=== PATIENT | male | born 1950 | race Caucasian/White ===

== ENCOUNTER 2020-07-11 19:28 | Outpatient (REF) | payer MEDICARE, MEDICAID, SELFPAY ==
[2020-07-11 16:58] LABS: ALT 22 U/L (16-63); AST 25 U/L (15-37); Albumin 3.9 g/dL (3.4-5.0); Alkaline Phosphatase 61 U/L (46-116); Anion Gap 11.4 mmol/L (3-11); BUN 17 mg/dL (7-18); Bilirubin, Total 0.5 mg/dL (0.2-1.0); CO2 26.6 mmol/L (21.0-32.0); CREATININE 1.1 mg/dL (0.70-1.30); Calcium 9.2 mg/dL (8.5-10.1); Calculated LDL 122 mg/dL (<100); Chloride 106 mmol/L (98-107); Cholesterol 216 mg/dL (<200); Glucose 88 mg/dL (74-106); HDL Cholesterol 82 mg/dL (40-60); Potassium 4.6 mmol/L (3.5-5.1); Sodium 144 mmol/L (136-145); TSH (W/Ref FT4) 0.95 uIU/mL (0.36-3.74); Total Protein 7.8 g/dL (6.4-8.2); Triglyceride 63 mg/dL (<150)
[2020-07-11 17:09] LABS: Uric Acid 7.6 mg/dL (3.5-7.2)
== END 2020-07-11 19:29 | disposition home or self-care (01) ==
LOC: NCHCN 19:28
PROVIDERS: PCP Physician Assistant; Visit Provider Physician Assistant
DX: I10 Essential (primary) hypertension (principal); M10.9 Gout, unspecified; F41.8 Other specified anxiety disorders
CPT/HCPCS: 80053; 80061; 84443; 84550

== ENCOUNTER 2022-06-04 12:09 | Outpatient (REF) | payer MEDICARE, MEDICAID, SELFPAY ==
[2022-06-04 19:25] LABS: Anion Gap 9.9 mmol/L (3-11); BUN 21 mg/dL (7-18); CO2 23.1 mmol/L (21.0-32.0); CREATININE 1.1 mg/dL (0.70-1.30); Calcium 9.5 mg/dL (8.5-10.1); Chloride 104 mmol/L (98-107); Estimated GFR 72.22 (mL/min/1.73m2); Glucose 108 mg/dL (74-106); Potassium 4.3 mmol/L (3.5-5.1); Sodium 137 mmol/L (136-145)
== END 2022-06-04 12:10 | disposition home or self-care (01) ==
LOC: NCHCN 12:09
PROVIDERS: PCP Physician Assistant; Visit Provider Physician Assistant
DX: I10 Essential (primary) hypertension (principal)
CPT/HCPCS: 80048

== ENCOUNTER 2023-02-24 12:39 | Outpatient (REF) | payer MEDICARE, MEDICAID, SELFPAY ==
[2023-02-24 19:28] LABS: Abs Immature Grans 0.05 10^3/uL (0.0-0.06); Absolute Basophil Count 0.09 10^3/uL (0.0-0.2); Absolute Eosinophil Count 0.44 10^3/uL (0.0-0.7); Absolute Lymphocyte Count 1.94 10^3/uL (1.2-3.4); Absolute Monocyte Count 0.75 10^3/uL (0.1-0.8); Absolute Neutrophil Count 6.42 10^3/uL (1.2-6.7); Basophils % 0.9; Eosinophils % 4.5; HCT 38.1 % (40.0-50.0); HGB 13.1 g/dL (13.5-17.5); Immature Grans % 0.5; MCH 31.3 pg (27.0-33.0); MCHC 34.4 % (32.0-36.0); MCV 91 fL (80-95); MPV 10.2 fL (8.0-11.0); Monocytes % 7.7; Neutrophils % 66.4; Platelet Count 370 10^3/uL (130-400); RBC 4.18 10^6/uL (4.36-5.78); RDW 12.3 % (11.8-14.1); RDW-SD 41.1 fL; WBC 9.69 10^3/uL (4.4-10.8)
[2023-02-24 19:39] LABS: ALT 17 U/L (16-63); AST 20 U/L (15-37); Albumin 3.6 g/dL (3.4-5.0); Alkaline Phosphatase 62 U/L (46-116); Anion Gap 9.1 mmol/L (3-11); BUN 20 mg/dL (7-18); Bilirubin, Total 0.3 mg/dL (0.2-1.0); CO2 24.9 mmol/L (21.0-32.0); Calcium 9.2 mg/dL (8.5-10.1); Chloride 103 mmol/L (98-107); Estimated GFR 80.47 (mL/min/1.73m2); Glucose 115 mg/dL (74-106); Potassium 4.3 mmol/L (3.5-5.1); Sodium 137 mmol/L (136-145); Total Protein 7.8 g/dL (6.4-8.2)
[2023-02-25 19:33] LABS: PSA, Screening 1.9 ng/mL (<=6.5)
== END 2023-02-24 12:40 | disposition home or self-care (01) ==
LOC: NCHCN 12:39
PROVIDERS: PCP Physician Assistant; Visit Provider Physician Assistant
DX: R31.9 Hematuria, unspecified (principal); M10.9 Gout, unspecified; Z12.5 Encounter for screening for malignant neoplasm of prostate
CPT/HCPCS: 80053; 84153; 85025

== ENCOUNTER 2023-06-01 15:14 | Outpatient (REF) | payer MEDICARE, MEDICAID, SELFPAY ==
[2023-06-01 20:55] LABS: LDL CHOLESTEROL 97 mg/dL (<100)
[2023-06-01 21:02] LABS: Hemoglobin A1C 5.3 % (<5.7)
== END 2023-06-01 15:15 | disposition home or self-care (01) ==
LOC: NCHCN 15:14
PROVIDERS: PCP Physician Assistant; Visit Provider Physician Assistant
DX: E78.5 Hyperlipidemia, unspecified (principal); R73.9 Hyperglycemia, unspecified; E66.3 Overweight
CPT/HCPCS: 83721; 83036

== ENCOUNTER → 2023-06-15 01:22 | Outpatient (CLI) | payer MEDICARE, MEDICAID, SELFPAY ==
--- NOTE | 2023-06-15 | DI.US_ITS ---
Exam(s) US RENAL EXAM: US RENAL CLINICAL HISTORY: BLOOD IN URINE, R31.9, HEMATURIA. TECHNIQUE: Bruce scale, color and spectral Doppler were used. COMPARISON: No exams were available for comparison FINDINGS: Renal size in cm: Right: 9.5 left: 10.5 Echogenicity: Normal Hydronephrosis: No Cyst or mass: No Nephrolithiasis: No Bladder:Normal. No wall thickening or trabeculation visible. No visible stone or mass. Both uret eral jets were visualized. Prevoid vol:413 cc Postvoid vol:95 cc Nodular, enlarged prostate which impresses on the base of the bladder. Volume 90 cc. IMPRESSION: Enlarged prostate and impressing upon the like base of bladder. Elevated postvoid residual. DATA REPOSITORY:
== END ==
PROVIDERS: PCP Physician Assistant; Visit Provider Physician Assistant
DX: N42.9 Disorder of prostate, unspecified (principal); R31.9 Hematuria, unspecified
CPT/HCPCS: 76770

== ENCOUNTER 2023-12-01 11:21 | Outpatient (REF) | payer MEDICARE, MEDICAID, SELFPAY ==
--- OUTSIDE RECORDS SUMMARY | 2023-12-01 11:26 | XMS_ITS | Clinical Summary ---
Author Organization [facility] Address [address] [place] [id number] Care Team Providers Care Warehouse Order Selector Name Role Phone Unknown, Provider Primary Care Provider Social History Tobacco Use Types Packs/Day Years Used Date Smoking Tobacco: Never Assessed Sex and Gender Information Value Date Recorded Sex Assigned at Not on file Gender Identity Not on file Sexual Orientation Not on file Plan of Treatment Health Maintenance Due Date Last Done Comments Hepatitis C Screen 1950 RSV Immunization ( o r 60+ Years) (1 - 1-dose 60+ series) 2011 Fall Risk Screening 09/05/2016 COVID-19 Vaccine ( season) 2023 Care Teams Warehouse Order Selector Relationship Specialty Start Date End Date Unknown, Provider, PCP - General 08/29/15
--- OUTSIDE RECORDS SUMMARY | 2023-12-01 11:26 | XMS_ITS | Encounter Summary ---
Author Organization [facility] Address [address] [place] [address] Care Team Providers Care Manager Sourcing Name Role Phone None, Provider Primary Care Provider Unavailabl e Unknown, Provider Primary Care Provider [phone] Encounter Details Date Type Department Care Team (Late st Contact Info) Description 08/28/2015 Results Only [facility] [phone] Lauro Jackson MD [address] [place] [phone] Social History Tobacco Use Types Packs/Day Years Used Date Smoking Tobacco: Never Assessed Sex and Gender Information Value Date Recorded Sex Assigned at Not on file Gender Identity Not on file Sexual Orientation Not on file documented as of this encounter Plan of Treatment Not on file documented as of this encounter Procedures Procedure Name Priority Date/Time Associated Diagnosis Comments SURGICAL PATHOLOGY Routine 08/28/2015 9:39 EDT documented in this encounter Results * SURGICAL PATHOLOGY (08/28/2015 9:39 EDT) Pathology Report: SURGICAL PATHOLOGY REPORT Reports generated via electronic interface contain original data; however they are lacking the format of the original report. Caution should be taken when reading/interpret ing unformatted reports. Name: ? TOR ROCKWELL ? Accession #: ? [id number] ? : ? 1950 (Age: 64) ??M ? Collect Date: ? 08/28/2015 ? Location: ? [facility] ? Receive Date: ? 08/30/2015 ? Provider: LAURO JACKSON MD Copy to: FUENTES QUEEN MD ? Final Pathologic Diagnosis: APPENDIX, APPENDECTOMY: - ??Acute suppurative appendicitis with periappendicitis. Document reviewed and electronically signed by: RHONDA BAEZ MD Report ??Date: 09/03/2015 17:09 By the signature above, the attending physician certifies that he/she has personally conducted a gross and/or microscopic examination of the described specimens and rendered or confirmed the above diagnosis. Specimen(s) Received: Appendix Clinical History: Appendicitis Gross Description: ? Received in formalin labelled with proper patient identification (initials M, W) and appendix is a vermiform appendix (11.0 cm in length x 0.7 cm in diameter), with dusky mesoappendix. The proximal margin is stapled. ? The serosa is john-white, smooth. The cut surface is unremarkable. The average wall thickness is 0.2 cm with no discernible perforation site. The lumen ranges from pinpoint to 0.1 cm in diameter and contains no fecalith. The proximal margin is inked black. ? The section adjacent to the proximal stapled margin, two traveling representative cross sections and one-half of the longitudinally bisected distal tip are submitted in 1. Dr. Nolasco 09/01/2015 2:58 PM End of Report [facility] 08/28/2015 9:39 EDT 08/30/2015 9:39 EDT Lauro Jackson MD PATHOLOGY ORDERABLES [facility] [address] [place] [address] documented in this encounter Visit Diagnoses Not on filedocumented in this encounter Care Teams Manager Sourcing Relationship Specialty Start Date End Date None, Provider PCP - General 03/12/15 08/28/15 Unknown, Provider, PCP - General 08/29/15 documented as of this encounter
--- OUTSIDE RECORDS SUMMARY | 2023-12-01 11:26 | XMS_ITS | Encounter Summary ---
Author Organization [facility] Address [address] [place] [address] Care Team Providers Care Facility Service Manager Name Role Phone Unknown, Provider Primary Care Provider [phone] Encounter Details Date Type Department Care Team (Late st Contact Info) Description 02/24/2023 Lab Requisition [facility] Pathology & Laboratory Medicine - [address] [address] Outr Resulting Lab, Provider Social History Tobacco Use Types Packs/Day Years Used Date Smoking Tobacco: Never Assessed Sex and Gender Information Value Date Recorded Sex Assigned at Not on file Gender Identity Not on file Sexual Orientation Not on file documented as of this encounter Plan of Treatment Not on file documented as of this encounter Procedures Procedure Name Priority Date/Time Associated Diagnosis Comments PSA TOTAL, DIAGNOSTIC Routine 02/24/2023 12:25 EDT documented in this encounter Results * PSA TOTAL, DIAGNOSTIC (02/24/2023 12:25 EDT) PSA 1.9 <=6.5 ng/mL 02/25/2023 19:28 EDT [facility] Blood VENOUS BLOOD / Unknown 02/24/2023 12:25 EDT 02/25/2023 17:54 EDT Narrative [facility] - 02/25/2023 19:28 EDT NOTE: Serum PSA concentration should not be interpreted as absolute evidence for the presence or absence of malignant disease. Assayed on Siemens ADVIA Centaur XPT using chemiluminescent technology.??Values obtained by using different assay methods cannot be used interchangeably. Provider Outr Resulting Lab CHEMISTRY & BLOOD GAS ORDERABLES [facility] [address] [place] [address] documented in this encounter Visit Diagnoses Not on filedocumented in this encounter Care Teams Facility Service Manager Relationship Specialty Start Date End Date Unknown, Provider, PCP - General 08/29/15 documented as of this encounter
--- OUTSIDE RECORDS SUMMARY | 2023-12-01 11:26 | XMS_ITS | Data Portability ---
Author Organization [facility] Address [address] [place] [facility] [place] [address] Care Team Providers Care Beauty Specialist Name Role Phone BENJAMIN YANCEY Dentist Assessment No assessment recorded. Plan of Treatment Reminders Order Date Submit Date Provider Last Modified By Organization Details Last Modified Time Details Appointments Follow Up 2023 09:40A Kerri MIKE Not available Not available Not available Follow Up 2024 02:30P Kerri MIKE Not available Not available Not available Lab HbA1c (hemoglob in A1c), blood - Specimen collected in the office at [facility]. [email or web address] [facility] (Registration ), [address] [place] [address] [place], [address], 06/08/2023 07:16:43 LDL, direct, serum - Specimen collected in the office at [facility]. [email or web address] [facility] (Registration ), [address] [place] [address] [place], [address], 06/08/2023 07:16:43 urinalysi s, dipstick 2023 024 [email or web address] [facility], [address] [place] [address] [address] [place], [address], 06/01/2023 09:50:30 Referral urologist referral - Referral to urology for episode of gross hematuria for a few days in Jan 2023. He is a cigar smoker daily. US of kidneys and bladder has been ordered at [facility]. He has not had another episode. 2023 024 [email or web address] Abraham Tineo MD, [address] [place] [address] [place], [address], 06/29/2023 08:33:01 Procedures None recorded. Surgeries None recorded. Imaging US, kidney 2023 024 SYLVIA [facility] (Radiology), [address] [place] [address] [place], [address], 06/15/2023 15:49:58 US, bladder 2023 024 [email or web address] [facility] (Radiology), [address] [place] [address] [place], [address], 06/15/2023 15:51:51 Medication Orders None recorded. Patient TargetsNo targets recorded. Patient Instructions Encounter Date Encounter Id Patient Instructions Last Modified By Organization Details Last Modified Time 06/01/2023 [id number] A referral has been placed for {{Allergy Audiolo gy Bariatric Card iology Colonoscop y Winding Inspector And Tester Endoc rinology ENT Zhaeer roenterology Gene ral Surgery Genetics Hematology/Oncolo gy Nephrology Cece rology MICROWAVE REMOTE SENSING SCIENTIST Opt ometry/Ophthalmol ogy Orthopedics [facility] Physical Therapy Podiatry Psychiatry Pulmon ology Rheumatolog y Sleep Clinic Spine Clinic Urology* V ascular Surgery}} at {{[facility] ([facility]) [facility] ([facility])* [facility] ([facility]) ([facility]) [facility] ([facility]) [facility] ([facility]) [facility]}}. If you do not receive a call to schedule an appointment in 7-10 days, please contact our prize coordinator at {{[facility] ([facility]) [facility] ([facility])* [facility] ([facility]) ([facility]) [facility] ([facility]) [facility] ([facility]) [facility]}} will contact you to schedule {{bone density CT scan Heart Monitor mammogram MRI Ultrasound* Stress Test Xray}}. If you do not receive a call in 7-10 days please contact the office. You had blood work done today. Please allow up to 2 weeks to hear about results. continue current medications Call with any questions or concerns [email or web address] Not available 06/01/2023 09:50:00 Reason for Referral Urologist Referral for Blood in urine Referral to urology for episode of gross hematuria for a few days in Jan 2023. He is a cigar smoker daily. US of kidneys and bladder has been ordered at [facility]. He has not had another episode. Referring Physician: Ave Mike, Family Medicine, Encounter Date: 06/01/2023 Results Created Date Observation Date Name Description Value Unit Range Abnormal Flag LastModifiedBy Organization Detail LastModifiedTime 06/01/19 24 06/01/2023 DIREC T LDL CHOL direct LDL chol 97 mg/dL <100 Not Available [address] [place], [address] 06/01/2023 20:59:29 06/01/19 24 06/01/2023 HEMOG LOBIN A1C hemoglobin A1C 5.3 % <5.7 Not Available [address] [place], [address] 06/01/2023 21:04:34 06/01/19 24 06/01/2023 urina lysis , dipst ick Leukocytes Negati ve Not Available [address], [address], 06/01/2023 09:45:03 06/01/19 24 06/01/2023 urina lysis , dipst ick Nitrite negati ve Not Available [address], [address], 06/01/2023 09:45:03 06/01/19 24 06/01/2023 urina lysis , dipst ick Urobilinogen .2 Not Available [facility] [address], [place], [address], 06/01/2023 09:45:03 06/01/19 24 06/01/2023 urina lysis , dipst ick Protein Negati ve Not Available [facility] [address], [place], [address], 06/01/2023 09:45:03 06/01/19 24 06/01/2023 urina lysis , dipst ick pH 5.0 Not Available [facility] [address], [place], [address], 06/01/2023 09:45:03 06/01/19 24 06/01/2023 urina lysis , dipst ick Blood Negati ve Not Available [facility] [address], [place], [address], 06/01/2023 09:45:03 06/01/19 24 06/01/2023 urina lysis , dipst ick Specific [place] 1.020 Not Available [facility] [address], [place], [address], 06/01/2023 09:45:03 06/01/19 24 06/01/2023 urina lysis , dipst ick Ketone Trace Not Available [facility] [address], [place], [address], 06/01/2023 09:45:03 06/01/19 24 06/01/2023 urina lysis , dipst ick Bilirubin Negati ve Not Available [facility] [address], [place], [address], 06/01/2023 09:45:03 06/01/19 24 06/01/2023 urina lysis , dipst ick Glucose Negati ve Not Available [facility] [address], [place], [address], 06/01/2023 09:45:03 06/01/19 24 06/01/2023 urina lysis , dipst ick Appearance Clear Not Available [facility] [address], [place], [address], 06/01/2023 09:45:03 06/01/19 24 06/01/2023 urina lysis , dipst ick Color Yellow Not Available [facility] [address], [place], [address], 06/01/2023 09:45:03 06/15/19 24 06/15/2023 USTeena Name: Don Harris Unit #: [id number] Loc: DI Orderi ng [facility] er: Marbella Holliday t #: [id number] Status : REG CLI Primar y Care Provid er: Florin Maya Date of Exam: 06/15 Sex: M Admiss ion Date: : 1950 Age: 72 Exam(s ) US RENAL EXAM: US RENAL CLINIC AL HISTOR Y: BLOOD IN URINE, R31.9, HEMATU TITI. TECHNI QUE: Bruce scale, color and spectr al Dopple r were used. COMPAR SHANT: No exams were availa ble for compar shant FINDIN GS: Renal size in cm: Right: 9.5 left: 10.5 Echoge nicity : Normal Hydron ephros is: No Cyst or mass: No Nephro lithia sis: No Bladde r:Norm al. No wall thicke [place] or trabec ulatio n visibl e. No visibl e stone or mass. Both ureter al jets were visual ized. Prevoi d vol:41 3 cc Postvo id vol:95 cc Nodula r, enlarg ed prosta te which impres ses on the base of the bladde r. Volume 90 cc. IMPRES ANNE: Enlarg ed prosta te and impres sing upon the like base of bladde r. Elevat ed postvo id residu al. DATA REPOSI TORY: Ana castro By: Marbella Holliday CC: ALISON Gottlieb NP, JOE ------ ------ ------ ------ ------ ------ ------ ------ ------ ------ ------ ------ - Dictat ed By: Pavel Posadas 1506 1506 Transc ribed By: Elisabeth Murrell 1506 This is privil eged, confid ential inform ation intend ed only for the provid er named. Any use or distri bution by any person other than this provid er is strict ly prohib ited. If you receiv e this report in error, please notify us immedi kati at and return the origin al report to us at the addres s above. Thank- you. [email or web address] [facility] (Radiology) [address], [place], [address], 06/15/2023 15:49:58 Result Notes None recorded. Problems Name Status Onset Date Resolution Date Notes Provider Name and Address Organization Details Recorded Time Gastro-esopha geal reflux disease with esophagitis Active 2012 Problem Code: K21.0; Problem Code Type: ICD-10; Not Available [facility] 3 05:48:48 Tremor Active 2014 Problem Code: R25.1; Problem Code Type: ICD-10; Not Available [facility] 3 05:48:48 Gout Active 201512/01/2022 - Comments only - Ave GRAHAM - Patient has not had an episode of gout in years and he is taking the allopurinol quite infrequently. He has also made a lot of lifestyle changes. We are going to try discontinuing the allopurinol completely. He will call if he is having episodes of gout again. Problem Code: M10.9; Problem Code Type: ICD-10; Not Available [facility] 3 05:48:48 Essential hypertension Active 201512/01/2022 - Comments only - Ave GRAHAM - Blood pressure was higher than last time but patient has not been taking medication consistently. Advised to take lisinopril daily. Patient is up-to-date on blood work. Problem Code: I10; Problem Code Type: ICD-10; Not Available [facility] 3 05:48:48 Anxiety Active 201512/01/2022 - Comments only - Ave GRAHAM - PHQ-9 3. Denies SI or HI. Mood is stable without medication. Continue with healthy lifestyle choices. Problem Code: F41.8; Problem Code Type: ICD-10; Not Available [facility] 3 05:48:48 Acquired absence of organ Active 2015 Problem Code: Z90.89; Problem Code Type: ICD-10; Not Available [facility] 3 05:48:48 Sciatica Active 2015 Problem Code: M54.30; Problem Code Type: ICD-10; Not Available [facility] 3 05:48:48 Screening for malignant neoplasm of colon Completed 201904/19/2020 04/18/2020 - Comments only - Ave GRAHAM - Referral to [facility] general surgery for colonoscopy Problem Code: Z12.11; Problem Code Type: ICD-10; Not Available [facility] 3 05:48:49 Hyperlipidemi a Active 202007/31/2020 - Comments only - Ave GRAHAM - Discussed lifestyle modifications Problem Code: E78.5; Problem Code Type: ICD-10; Not Available [facility] 3 05:48:49 Trigger finger of right hand Active 202008/14/2021 - Comments only - Ave GRAHAM - - referral to [facility] ortho for further evaluation Problem Code: M65.341; Problem Code Type: ICD-10; Not Available [facility] 3 05:48:49 Pain of left knee joint Active 202108/14/2021 - Comments only - Ave GRAHAM - - pt has a prepatellar bursitis that does not appear infected. recd RICE. d/c ibuprofen and start on meloxicam 7.5mg 1 tablet once daily and this will also help with his other arthritic pains. pt declines xray at this time. advised to wear knee braces when working Problem Code: M25.562; Problem Code Type: ICD-10; Not Available [facility] 3 05:48:49 Acute appendicitis Completed 201502/02/2023 Problem Code: K35.80; Problem Code Type: ICD-10; Not Available [facility] 3 05:48:49 Sciatica Completed 201002/02/2023 Not Available [facility] 3 05:48:49 Gastroesophag eal reflux disease Completed 201202/02/2023 Not Available [facility] 3 05:48:49 Bursitis Completed 200908/28/2015 Not Available [facility] 3 05:48:50 Blood in urine Active 202202/24/2023 - Comments only - Ave GRAHAM - /cigar smoking - u/a showed 100 protein and trace ketones, no blood, leuks or nitrates. sending for urine microscopy to be sure. urine was dark in color advised to inc water intake. advised smoking cessation. check cbc and CMP as well. sending referral to [facility] urology d/t his cigar smoking history Problem Code: R31.9; Problem Code Type: ICD-10; Not Available [facility] 4 05:36:12 Nicotine dependence Active 2022 Problem Code: F17.290; Problem Code Type: ICD-10; Not Available [facility] 4 05:36:13 Overweight Active [address], [place], [address] , [facility]. 4 11:18:44 Benign prostatic hyperplasia Active [address] MI[address] PA-C [address], [place], [address] , [facility] 15:48:44 Erectile dysfunction Active [address] MIKE PA-C [address], [place], [address] , [facility] 4 10:08:10 Notes:*Problem Name: Abel Cummings *ICD-10 Codes: *Problem Status: active *Comments: *Note Date: 04/25/2014 Problem Notes None recorded. Procedures Surgical History Date Name Laterality Status Provider Name and Address Organization Details Recorded Time colonoscopy completed Gagan Crawford RN [facility], [facility] 11/29/2023 15:56:57 Imaging Results Imaging Date Name Status LastModified by Organiz ation Details LastModified Time 06/15/2023 US, kidney completed [email or web address] [facility] (Radiology) [address], [place], [address], 06/15/2023 15:49:58 Procedure Notes None recorded. Medical Equipment None Reported. Medications Name Sig Start Date Stop Date Status Note LastModified by Organization Details LastModified Time ibuprofen 800 mg tablet Take 1 tablet by mouth three times a day as needed 08/14 completed Not Available Not Available Not Available amlodipin e 5 mg tablet Take 1 by mouth once daily for blood pressure 04/18 completed Not Available Not Available Not Available allopurin ol 100 mg tablet TAKE 1 TABLET BY MOUTH EVERY DAY. START AFTER GOUT FLARE RESOLVES active Not Available Not Available No t Available meloxicam 7.5 mg tablet TAKE 1 TABLET BY MOUTH EVERY DAY WITH FOOD. DO NOT TAKE IBUPROFE N WITH THIS MEDICATI ON 05/30 completed Not Available Not Available Not Available citalopra m 20 mg tablet Take 1 tab by mouth daily 08/12 completed Not Available Not Available Not Available tamsulosi n 0.4 mg capsule TAKE 1 CAPSULE BY MOUTH EVERY DAY AT BEDTIME active Not Available Not Available No t Available hydrocodo ne 7.5 mg-acetam inophen 325 mg tablet Take 1 tab by mouth daily as needed for pain 04/18 completed Not Available Not Available Not Available pantopraz ole 40 mg tablet,de layed release Take 1 tab by mouth daily, as needed 04/18 completed Not Available Not Available Not Available lisinopri l 10 mg tablet TAKE 1 TABLET BY MOUTH EVERY DAY active Not Available Not Available No t Available indometha anupama 25 mg capsule TAKE 1 CAPSULE BY MOUTH THREE TIMES DAILY NEEDED FOR PAIN. DO NOT TAKE MELOXICA M WHILE USING. TAKE FOR 5-7 DAYS active Not Available Not Available No t Available Advil 200 mg tablet take 1 tab by mouth every 4-6 hours as needed for pain 04/18 completed hospital discharg e Not Available Not Available Not Available cephalexi n 500 mg tablet 1 TAB three times daily 11/30 completed Not Available Not Available Not Available lisinopri l 10 mg-hydroc hlorothia zide 12.5 mg tablet Take 1 tab by mouth daily 04/18 completed Not Available Not Available Not Available rosuvasta tin 10 mg tablet TAKE 1 TABLET BY MOUTH EVERY DAY active Not Available Not Available No t Available Cialis 10 mg tablet Take 1 tablet one hour prior to activity 2023 active Not Available Not Available Not Avai lable meloxicam as needed active Not Available Not Available No t Available glucosami ne-chondr oitin 1tab 09/06 completed Not Available Not Available Not Available multivita min Take 1 tablet by mouth daily 04/18 completed Not Available Not Available Not Available omeprazol e 20 mg tablet,de layed release 1 TAB daily 09/24 completed Not Available Not Available Not Available Colcrys 0.6 mg tablet 1 Tab daily 2015 active Not Available Not Available Not Avai lable Vicodin ES 7.5 mg-300 mg tablet 1 TAB every six hours 2013 active Not Available Not Available Not Avai lable colchicin e 0.6 mg capsule Take 1 cap by mouth daily 04/18 completed Not Available Not Available Not Available Vitals Date Recorded Body height Body mass index (BMI) Body weight Oxygen saturation Oxygen saturation in Arterial blood by Pulse oximetry Heart rate Systolic blood pressure Diastolic blood pressure Provider Name and Address Organization Details Last Updated DateTime 4 176.53 cm 29.5 kg/m2 40881.4 6 g 98 % 98 % 67 /min 128 mm[Hg] 60 mm[Hg] Keshia Quiñones RN [facility] 4 09:38:32 Date Recorded Body height Body mass index (BMI) Body weight Oxygen saturation Oxygen saturation in Arterial blood by Pulse oximetry Heart rate Systolic blood pressure Diastolic blood pressure Provider Name and Address Organization Details Last Updated DateTime 4 176.53 cm 29.3 kg/m2 10454.7 8 g 98 % 98 % 67 /min 150 mm[Hg] 76 mm[Hg] JADA LOPEZ MA [facility] 4 09:42:40 Date Recorded Systolic blood pressure Diastolic blood pressure Provider Name and Address Organization Details Last Updated DateTime 12/01/2023 136 mm[Hg] 60 mm[Hg] AVE MIKE PA-C [address], [place], [address], [facility] 12/01/2023 10:06:26 Social History Question Answer Notes LastModified by Organizat ion Details LastModified Time Tobacco Smoking Status Current Every Day Smoker smokes one small cigar a day Keshia Quiñones RN [facility], [facility] 06/01/2023 09:35:55 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 Mental Status None recorded. Family History Relationship Description Onset Age of this Age Resolved Age Notes Father Family history of ac jerica medical disorder Father Family history of alcoholism Mother Family history of malignant neoplasm of ovary Notes:*Problem: Mother decea sed age 68, had some kind of a GI cancer. He is unsure of just what. Father at age 43, was an alcoholic. He has one sister, of lung cancer, and one sister has had lung and pancreatic cancer. No heart disease in the family. 04/27/13 Mother: Father: Family History of: Hypertension: Yes Coronary heart disease: Yes Alcoholism: Yes Medical History No medical history recorded. Immunizations Vaccine Type Date Status Provider Name and Address Organization Details Recorded Time Tdap 08/21/2010 completed Not Available [facility] 06:02:35 Tdap 02/17/2018 completed Not Available [facility] 06:02:35 Pneumococcal conjugate PCV 13 04/18/2020 completed Not Available [facility] 03/18/2023 06:02:35 Influenza, split virus, trivalent, preservative 07/10/2015 completed Not Available [facility] 03/18/2023 06:02:35 Influenza, split virus, quadrivalent, PF 04/18/2020 completed Not Available [facility] 03/18/2023 06:02:35 Influenza, high-dose, quadrivalent, PF 06/04/2022 completed Not Available [facility] 03/18/2023 06:02:36 Influenza, high-dose, quadrivalent, PF 04/28/2021 completed Not Available [facility] 03/18/2023 06:02:36 SARS-COV-2 (COVID-19) vaccine, UNSPECIFIED 02/17/2018 completed Not Available [facility] 03/18/2023 06:02:36 pneumococcal polysaccharide PPV23 06/04/2022 completed Not Available [facility] 2022 06:02:36 Influenza, high-dose, quadrivalent, PF 04/14/2023 completed Keshia Quiñones RN [place], [place] - [facility] 04/14/2023 09:53:09 Past Encounters Encounter ID Performer Location Encounter Start Date Encounter Closed Date Diagnosis/Indication Diagnosis SNOMED-CT Code [id number] Keshia Quiñones RN [address] [address] 04/14/2023 09:48:01 04/14/2023 10:42:35 Active or passive immunization 270081095 [id number] AVE MIKE PA-C [address] [address] 06/01/2023 09:22:15 06/01/2023 10:05:46 Essential hypertension 49721524 Hyperlipidemia 77602612 Blood in urine 07352404 Overweight 582287821 [id number] AVE MIKE PA-C [facility] [address] [place] [address] 12/01/2023 09:31:44 12/01/2023 10:45:37 Overweight 822467342 Essential hypertension 87160906 Blood in urine 28567652 Erectile dysfunction 860 002414 Gout 74214687 Health Concerns Section Related Observation LastModified by Organization Detai ls LastModified Time None Recorded Concern Status LastModified by Organization Details LastModified Time None Recorded Advance Directives Directive None Recorded Payers Encounter Date Sequence Insurance Name Policy Number Policy Mitchell Covered Member ID Mitchell Member ID Guarantor Name 04/14/[address] [facility] (MEDICAID) Tor Urbina Jaleesa [id number] Tor Urbina Jaleesa 04/14/2023 1 [place] [employer] [facility] Tor Urbina Jaleesa [id number] 2 Tor Carlitos Jaleesa 06/01/[address] [facility] (MEDICAID) Tor Urbina Jaleesa [id number] Tor Urbina Jaleesa 06/01/2023 1 [place] [employer] [facility] Tor Urbina Jaleesa [id number] 2 Tor Urbina Jaleesa Notes Date Note Type Note Provider Name and Address Organization Details Recorded Time 06/01/2023 text/html HPI Notes: Patient presents for follow-up chronic conditions. His blood pressure is well-controlled on his current medications. He notes that he has not had any recent flareups of gout. He denies chest pains, palpitations, headaches, dizziness, shortness of breath and edema. He did not follow through with seeing the urologist as he notes that the blood in his urine did resolve. He has not had another flareup. He does continue to smoke a cigar daily. He does not have any concerns today. [address]Y [address], [place], [address], [facility]. 06/01/2023 10:32:25
--- OUTSIDE RECORDS SUMMARY | 2023-12-01 11:26 | XMS_ITS | Referral Summary ---
Author Organization [facility] Address [address] [place] [address] Care Team Providers Care Vice President Of Finance Name Role Phone Unknown, Provider Primary Care Provider Social History Tobacco Use Types Packs/Day Years Used Date Smoking Tobacco: Never Assessed Sex and Gender Information Value Date Recorded Sex Assigned at Not on file Gender Identity Not on file Sexual Orientation Not on file Plan of Treatment Not on file Care Teams Vice President Of Finance Relationship Specialty Start Date End Date Unknown, Provider, PCP - General 08/29/15
--- OUTSIDE RECORDS SUMMARY | 2023-12-01 11:26 | XMS_ITS | Encounter Summary ---
Author Organization [facility] Address [address] [place] [address] Care Team Providers Care Percussion Welding Machine Operator Name Role Phone None, Provider Primary Care Provider Unavailabl e Encounter Details Date Type Department Care Team (Latest Contact Info) Description 08/28/2015 7:36 EDT - 08/28/2015 23:59 EDT Hospital Encounter [address] [address] Unknown, Provider, Discharge Disposition: Home or Self Care Social History Tobacco Use Types Packs/Day Years Used Date Smoking Tobacco: Never Assessed Sex and Gender Information Value Date Recorded Sex Assigned at Not on file Gender Identity Not on file Sexual Orientation Not on file documented as of this encounter Discharge Disposition Disposition Code Departure Means Destination Home or Self Halfway documented in this encounter Plan of Treatment Not on file documented as of this encounter Visit Diagnoses Not on filedocumented in this encounter Care Teams Percussion Welding Machine Operator Relationship Specialty Start Date End Date None, Provider PCP - General 03/12/15 08/28/15 documented as of this encounter
--- OUTSIDE RECORDS SUMMARY | 2023-12-01 11:26 | XMS_ITS | Encounter Summary ---
Author Organization [facility] Address [address] [place] [address] Care Team Providers Care Box Turner Name Role Phone Unavailable Primary Care Provider Unavailabl e Encounter Details Date Type Department Care Team (Latest Contact Info) Description 03/29/2006 7:06 EST - 03/29/2006 11:59 EST Hospital Encounter [address] [address] Gray Salcido MD [address] [place] [phone] Discharge Disposition: Auto Discharge Social History Tobacco Use Types Packs/Day Years Used Date Smoking Tobacco: Never Assessed Sex and Gender Information Value Date Recorded Sex Assigned at Not on file Gender Identity Not on file Sexual Orientation Not on file documented as of this encounter Discharge Disposition Disposition Code Departure Means Destination Auto Discharge documented in this encounter OR Notes * OR Surgeon - Gray Salcido MD - 03/29/2006 0000 EST PROCEDURE REPORT PT TYPE: OP PT LOC: SERVICE DATE: 03/29/2006 SURGEON: Michael Wylie MDJames Mogan, MD NET C DEVELOPER: PREOPERATIVE DIAGNOSIS: Left ring trigger finger POSTOPERATIVE DIAGNOSIS: Left ring trigger finger PROCEDURE: Left ring trigger release ANESTHESIA: FINDINGS: Minimal synovitis in the tendon sheath. NARRATIVE: With the patient under adequate local infiltration anesthesia, the arm was prepped and draped free in the usual sterile fashion. An oblique incision was made over the first bakari, dissection down to the bakari, which was incised longitudinally allowing free excursion of the tendon. The wound was then irrigated and closed with 5-0 nylon. Soft dressing applied. Patient discharged home to be followed as an outpatient. Signed by Gray Salcido MD 04/08/2006 08:28 Michael Wylie MD Gray Salcido MD - MD Omari P - jaw Job ID: [id number] Document ID: [id number] cc: Gray Salcido MD documented in this encounter Plan of Treatment Not on file documented as of this encounter Visit Diagnoses Not on filedocumented in this encounter
--- OUTSIDE RECORDS SUMMARY | 2023-12-01 11:26 | XMS_ITS | Encounter Summary ---
Author Organization [facility] Address [address] [place] [address] Care Team Providers Care Vending Machine Technician Name Role Phone Unavailable Primary Care Provider Unavailabl e Encounter Details Date Type Department Care Team (Latest Contact Info) Description 12/27/2006 12:36 EDT Hospital Encounter [address] [address] Gray Salcido MD [address] [place] [phone] Discharge Disposition: Auto Discharge Social History [...] OR Surgeon - Gray Salcido MD - 12/27/2006 0000 EDT PROCEDURE REPORT PT TYPE: OP SERVICE DATE: 12/27/2006 SURGEON: Michael Wylie MDJames Mogan, MD GRAIN THRESHER: PREOPERATIVE DIAGNOSIS Left trigger thumb. POSTOPERATIVE DIAGNOSIS Left trigger thumb. PROCEDURE Left trigger release. ANESTHESIA FINDINGS Some fraying of the superficial fibers of the tendon. NARRATIVE With the patient under adequate local infiltration anesthesia, the arm was prepped and draped free in the usual sterile fashion. A transverse incision was made over the MP joint volarly with dissection down to thefirst bakari, which was incised longitudinally with care taken to protect the radial digital nerve. The wound was then irrigated and closed with 5-0 nylon. A soft dressing was applied. The patient was discharged home to be followed as an outpatient. Signed by Gray Salcido MD 01/06/2007 07:39 Michael Wylei MD Gray Salcido MD - MD Omari Aixa worley Job ID: [id number] Document ID: [id number] cc: Gray Salcido MD - Gray Salcido MD P Adelso worley Job ID: [id number] Document ID: [id number] cc: Gray Salcido MD documented in this encounter Plan of Treatment Not on file documented as of this encounter Visit Diagnoses Not on filedocumented in this encounter
--- OUTSIDE RECORDS SUMMARY | 2023-12-01 11:26 | XMS_ITS | Encounter Summary ---
Author Organization [facility] Address [address] [place] [address] Care Team Providers Care Grain Broker Name Role Phone Unavailable Primary Care Provider Unavailabl e Encounter Details Date Type Department Care Team (Late st Contact Info) Description 04/15/2006 10:36 EST Hospital Encounter [facility] [address] [place] [address] Gray Salcido MD [address] [place] [phone] Social History Tobacco Use Types Packs/Day Years [...]
[2023-12-01 18:55] LABS: ALT 29 U/L (16-63); AST 26 U/L (15-37); Albumin 3.9 g/dL (3.4-5.0); Alkaline Phosphatase 57 U/L (46-116); Anion Gap 10.8 mmol/L (3-11); BUN 19 mg/dL (7-18); Bilirubin, Total 0.55 mg/dL (0.2-1.0); CO2 25.2 mmol/L (21.0-32.0); CREATININE 1.1 mg/dL (0.70-1.30); Calcium 9.3 mg/dL (8.5-10.1); Chloride 104 mmol/L (98-107); Estimated GFR 71.32 (mL/min/1.73m2); Glucose 94 mg/dL (74-106); Potassium 4.9 mmol/L (3.5-5.1); Sodium 140 mmol/L (136-145); Total Protein 7.7 g/dL (6.4-8.2); Uric Acid 6.7 mg/dL (3.5-7.2)
== END 2023-12-01 11:22 | disposition home or self-care (01) ==
LOC: NCHCN 11:21
PROVIDERS: PCP Physician Assistant; Visit Provider Physician Assistant
DX: I10 Essential (primary) hypertension (principal); M10.9 Gout, unspecified
CPT/HCPCS: 80053; 84550

== ENCOUNTER 2024-09-25 18:27 | Outpatient (REF) | payer MEDICARE, MEDICAID, SELFPAY ==
[2024-09-25 19:23] LABS: Abs Immature Grans 0.04 10^3/uL (0.0-0.06); Absolute Basophil Count 0.07 10^3/uL (0.0-0.2); Absolute Lymphocyte Count 2.44 10^3/uL (1.2-3.4); Absolute Monocyte Count 0.65 10^3/uL (0.1-0.8); Absolute Neutrophil Count 4.44 10^3/uL (1.2-6.7); Basophils % 0.9 %; HCT 39.5 % (40.0-50.0); HGB 13.5 g/dL (13.5-17.5); Immature Grans % 0.5 %; Lymphocytes % 30.3 %; MCHC 34.2 % (32.0-36.0); MCV 91 fL (80-95); MPV 10.4 fL (8.0-11.0); Monocytes % 8.1 %; Neutrophils % 55.2 %; Platelet Count 281 10^3/uL (130-400); RBC 4.36 10^6/uL (4.36-5.78); RDW 12.6 % (11.8-14.1); RDW-SD 41.9 fL; WBC 8.04 10^3/uL (4.4-10.8)
[2024-09-25 19:34] LABS: Bacteria Negative HPF (Negative); C & S Indicated? C&S Done As Ordered; Crystals Negative HPF (Negative); Epithelial Cells Rare HPF (Negative); Mucus Negative (Negative); RBC >50 HPF (0-2); WBC Negative HPF (0-5)
[2024-09-25 19:48] LABS: ALT 21 U/L (16-63); AST 27 U/L (15-37); Alkaline Phosphatase 62 U/L (46-116); Anion Gap 13.8 mmol/L (3-11); BUN 16 mg/dL (7-18); Bilirubin, Total 0.7 mg/dL (0.2-1.0); CO2 23.2 mmol/L (21.0-32.0); CREATININE 1.1 mg/dL (0.70-1.30); Calcium 9.4 mg/dL (8.5-10.1); Chloride 105 mmol/L (98-107); Estimated GFR 70.88 (mL/min/1.73m2); Glucose 100 mg/dL (74-106); Potassium 3.8 mmol/L (3.5-5.1); Sodium 142 mmol/L (136-145); Total Protein 7.7 g/dL (6.4-8.2)
[2024-09-26 19:35] LABS: PSA, Screening 2.2 ng/mL (<=6.5)
== END 2024-09-25 18:28 | disposition home or self-care (01) ==
LOC: NCHCN 18:27
PROVIDERS: PCP Physician Assistant; Visit Provider Physician Assistant
DX: R31.0 Gross hematuria (principal)
CPT/HCPCS: 80053; 84153; 81015; 85025; 87086

== ENCOUNTER → 2024-10-03 12:43 | Outpatient (BNVA) | payer MEDICARE, MEDICAID, SELFPAY | PROVIDERS: PCP Physician Assistant; Referring Provider Physician Assistant; Visit Provider Nurse Practitioner Gerontology | DX: R31.0 Gross hematuria (principal); R39.9 Unspecified symptoms and signs involving the genitourinary system | CPT/HCPCS: 99205; 81003; 51798 ==

== ENCOUNTER 2024-10-15 01:53 | Outpatient (CLI) | payer MEDICARE, MEDICAID, SELFPAY ==
--- NOTE | 2024-10-15 13:15 | DI.CT_ITS ---
Exam(s) CT ABDOMEN PELVIS WO/W EXAM: CT ABDOMEN PELVIS WO/W CLINICAL HISTORY: gross hematuria R31.9 TECHNIQUE: Imaging Protocol: Axial computed tomography images with coronal and sagittal reformatted images were created and reviewed. CONTRAST MATERIAL: Intravenous: Omnipaque 350 Contrast volume:100 mL Oral: No COMPARISON: US US RENAL from 06/15/2023 FINDINGS: ABDOMEN: Lung Bases: No acute abnormality. Liver: Normal density. No measurable mass. Portal, Superior Mesenteric, and Splenic Veins: Unremarkable. Gallbladder and Biliary Tract: There is a gallstone present. No biliary ductal dilatation. Pancreas: Normal density, no abnormal calcifications or inflammatory process. Spleen: Normal. Adrenals: No masses seen. Kidneys: Normal size, contour and axis. No radiodense stones or obstructive uropathy. No masses seen. Abdominal Aorta: Abdominal portion non-dilated. Atherosclerotic calcification is present. Bowel: No obstruction or bowel wall thickening. There is no evidence of appendicitis. Peritoneal Cavity: No ascites, collection or mesenteric inflammatory response. No free air. Lymph Nodes: Within normal limits. Bones: Within normal limits for the patient's age. Soft Tissues: There is a fat containing left inguinal hernia. PELVIS: Bladder: Symmetric distention, no gross wall thickening. Reproductive Organs: Prostate gland is enlarged. Prostate gland impinges on the base of the urinary bladder. Lymph Nodes: Within normal limits. Bones: Within normal limits for the patient's age. IMPRESSION: 1. There is no evidence of nephrolithiasis, hydronephrosis or renal mass. 2. Enlarged prostate gland which impinges upon the base of the urinary bladder. 3. Cholelithiasis. No biliary ductal dilatation. RADIATION DOSE DELIVERED: Total DLP Total DLP DATA REPOSITORY: All CT scans at this facility are submitted to the National Radiology Data Registry (NRDR) Dose Index Registry (DIR) with the [employer] ([employer]). RADIATION OPTIMIZATION: All CT scans at this facility use at least one of these dose optimization te chniques: automated exposure control; mA and/or kV adjustment per patient size (includes targeted exa ms where dose is matched to clinical indication); or iterative reconstruction.
[2024-10-15] MEDS: Omnipaque 350 MG/ML 100 ML BTL IJ (15:45)
[2024-10-15] MEDS: Normal Saline - Diluent 50 ML VIAL IJ (15:46)
== END 2024-10-15 02:13 ==
LOC: DI 01:53
PROVIDERS: PCP Physician Assistant; Visit Provider Nurse Practitioner Gerontology
DX: R31.9 Hematuria, unspecified (principal); K80.80 Other cholelithiasis without obstruction; N40.1 Benign prostatic hyperplasia with lower urinary tract symptoms
CPT/HCPCS: 74178; J3490

== ENCOUNTER → 2024-10-17 07:47 | Outpatient (BNVA) | payer MEDICARE, MEDICAID, SELFPAY | PROVIDERS: PCP Physician Assistant; Referring Provider Physician Assistant; Visit Provider Nurse Practitioner Gerontology | DX: R31.0 Gross hematuria (principal); N40.1 Benign prostatic hyperplasia with lower urinary tract symptoms | CPT/HCPCS: 99213 ==

== ENCOUNTER → 2024-11-01 14:00 | Outpatient (BNVA) | payer MEDICARE, MEDICAID, SELFPAY | PROVIDERS: PCP Physician Assistant; Referring Provider Physician Assistant; Visit Provider Urology | DX: R31.0 Gross hematuria (principal) | CPT/HCPCS: 81002; 52000 ==